=== PATIENT | female | born 1955 ===

== ENCOUNTER 2020-09-27 21:20 | Inpatient (IN) | payer OTHER ==
[2020-09-27] MEDS ORDERED: Sodium Chloride 0.9% 1,000 ML IV ONE (21:57)
[2020-09-27] MEDS ORDERED: Sodium Chloride 0.9% 10 ML Syringe FLUSH PRN (21:57)
[2020-09-27] MEDS ORDERED: Ondansetron 4 MG/2 ML SDV IVPUSH ONE (22:06)
[2020-09-27] MEDS ORDERED: HYDROmorphone 0.5 MG/0.5 ML Syringe IVPUSH ONE (22:06)
--- NOTE | 2020-09-27 22:06 | EDM.PDOC ---
ED HPI GENERAL MEDICAL PROBLEM - General Chief Complaint: Genitourinary Problem Stated Complaint: UTI AND VOMITING Time Seen by Provider: 09/27/20 21:52 Source of Information: Reports: Patient History Limitations: Reports: No Limitations - History of Present Illness INITIAL COMMENTS - FREE TEXT/NARRATIVE: 65-year-old female presents the emergency department this evening with com plaints of urinary symptoms, fever as high as 102, chills, nausea, vomiting, and for bilateral flank pain. The patient states she developed urinary symptoms about 8 days ago and started taking Azo extra strength. She states she ran out of this yesterday and noticed severe urinary symptoms of frequency, burning, and urgency. She states she was seen at the clinic today by her primary care provider, Kristen Wild, and a urinalysis was collected. Urinalysis collected today at the clinic shows 2+ protein, 2+ ketones, 2+ occult blood, nitrite positive, 1+ leukocyte Estrace, 10-20 RBC, 40-50 WBC, many urine bacteria, urine culture is pending. The patient was then started on Levaquin and has taken 1 dose today however she is not sure whether or not it stayed down due to her vomiting. She states she is feeling like she is having chest pain however it is more epigastric and she relates this to her vomiting today. Patient states she does have a history of pyelonephritis with previous hospitalizations. Lower Back Pain Score (Numeric/FACES): 10 - Related Data Allergies Allergy/AdvReac Type Severity Reaction Status Date / Time No Known Allergies Allergy Verified 04/23/18 17:17 Home Meds: Home Meds Omeprazole [Prilosec] 20 mg PO DAILY 11/17/13 [History] Pregabalin [Lyrica] 100 mg PO BID 04/05/14 [History] Meloxicam 15 mg PO DAILY 09/27/20 [History] traMADol [Ultram] 50 mg PO ASDIRECTED PRN 09/27/20 [History] Past Medical History Gastrointestinal History: Reports: GERD Genitourinary History: Reports: Pyelonephritis, UTI, Recurrent Musculoskeletal History: Reports: Back Pain, Chronic, Neck Pain, Chronic, Osteoarthritis, Other (See Below) Neurological History: Reports: Other (See Below) Other Neuro History: fibromyalgia - Past Surgical History HEENT Surgical History: Reports: Tonsillectomy Female Surgical History: Reports: Breast Implant, Hysterectomy Other Female Surgeries/Procedures: breast augmentation, breast reduction Neurological Surgical History: Reports: C-Spine, Lumbar Spine, Other (See Below) Other Neurological Surgeries/Procedures: C4-6 fusion Musculoskeletal Surgical History: Reports: Arthroscopic Knee, Carpal Tunnel, Kne e Replacement, Shoulder Surgery Social & Family History - Tobacco Use Tobacco Use Status *Q: Never Tobacco User Second Hand Smoke Exposure: No - Caffeine Use Caffeine Use: Reports: None - Recreational Drug Use Recreational Drug Use: No - Living Situation & Occupation Living situation: Reports: , with Spouse Occupation: Employed (Curriculum Director, [employer]) ED ROS GENERAL - Review of Systems Review Of Systems: Comprehensive ROS is negative, except as noted in HPI. ED EXAM, RENAL/ - Physical Exam Exam: See Below Exam Limited By: No Limitations General Appearance: Alert, WD/WN, Mild Distress Ears: Normal External Exam, Hearing Grossly Normal Nose: Normal Inspection Throat/Mouth: Normal Inspection, Normal Lips, Normal Voice, No Airway Compromise Head: Atraumatic Neck: Normal Inspection, Supple Respiratory/Chest: No Respiratory Distress, Lungs Clear, Normal Breath Sounds, No Accessory Muscle Use, Chest Non-Tender Cardiovascular: Normal Peripheral Pulses, Regular Rate, Rhythm, No Murmur GI/Abdominal: Normal Bowel Sounds, Soft, No Distention. No: Non-Tender (Female) Exam: Deferred Rectal (Female) Exam: Deferred Back Exam: Normal Inspection Extremities: Normal Inspection, Normal Range of Motion Neurological: Alert, Oriented, Normal Cognition Psychiatric: Normal Affect, Normal Mood Skin Exam: Warm, Dry, Intact, Normal Color, No Rash Lymphatic: No Adenopathy Course - Vital Signs Text/Narrative:: Patient presents with urinary symptoms that started about 8 days ago. She states that initially when the symptoms developed she started taking Azo extra strength and has taken it for the past 6 days. She states she then ran out and developed severe urinary symptoms which include frequency, urgency, and burning. She states last night she developed a fever up to 102 degrees, nausea, and vomiting. Was seen in the clinic today by her primary care provider and a urinalysis was completed which did show she had a UTI. She was started on Levaquin at that time. She has taken 1 dose today however she states she has continued to vomit and has now developed bilateral flank pain. She does have a history of pyelonephritis in the past. Due to her tachycardia and low-grade temp, she does screen out as a sepsis risk so I have ordered labs to include CBC, CMP, CRP, lactic acid, and blood cultures x2. I have ordered a liter of IV fluids as the patient is likely dehydrated and has not been able to keep anything down. I have also ordered Zofran for nausea and Dilaudid for pain. Last Recorded V/S: Last Vital Signs Temp 99.3 F 09/27/20 21:45 Pulse 91 09/27/20 22:48 Resp 16 09/27/20 22:48 BP 108/73 09/27/20 22:48 Pulse Ox 93 L 09/27/20 22:48 - Orders/Labs/Meds Orders: Active Orders 24 hr Category Date Time Status Blood Pressure Mgt: Sepsis [RC] Q15MX2 Care 09/27/20 21:58 Active CULTURE BLOOD [BC] Stat Lab 09/27/20 22:15 Received CULTURE BLOOD [BC] Stat Lab 09/27/20 22:15 Received Sodium Chloride 0.9% [Saline Flush] Med 09/27/20 21:57 Active 10 ml FLUSH ASDIRECTED PRN cefTRIAXone [Rocephin] 2 gm Med 09/27/20 23:10 Ordered Sodium Chloride 0.9% [Normal Saline] 100 ml IV ONETIME Blood Culture x2 Reflex Set [OM.PC] Stat Oth 09/27/20 21:57 Ordered Saline Lock Insert [OM.PC] Stat Oth 09/27/20 21:57 Ordered Medication Orders Ceftriaxone Sodium 2 gm/ (Sodium Chloride) 100 mls @ 200 mls/hr IV ONETIME ONE Stop: 09/27/20 23:39 Sodium Chloride (Sodium Chloride 0.9% 10 Ml Syringe) 10 ml FLUSH ASDIRECTED PRN PRN Reason: Keep Vein Open Last Admin: 09/27/20 22:17 Dose: 10 ml Documented by: CATALINA Labs: Laboratory Tests 09/27/20 09/27/20 09/27/20 Range/Units 22:15 22:15 22:15 WBC 7.67 (3.98-10.04) K/mm3 RBC 4.58 (3.98-5.22) M/mm3 Hgb 12.9 (11.2-15.7) gm/dl Hct 38.6 (34.1-44.9) % MCV 84.3 (79.4-94.8) fl MCH 28.2 (25.6-32.2) pg MCHC 33.4 (32.2-35.5) g/dl RDW Std Deviation 39.6 (36.4-46.3) fL Plt Count 152 L (182-369) K/mm3 MPV 9.0 L (9.4-12.3) fl Neutrophils % (Manual) 86 H (40-60) % Band Neutrophils % 1 (0-10) % Lymphocytes % (Manual) 10 L (20-40) % Atypical Lymphs % 0 % Monocytes % (Manual) 3 (2-10) % Eosinophils % (Manual) 0 L (0.7-5.8) % Basophils % (Manual) 0 L (0.1-1.2) Platelet Estimate Adequate RBC Morph Comment Normal PT 11.9 (9.7-12.0) SECONDS INR 1.11 Sodium 133 L (136-145) mEq/L Potassium 4.3 (3.5-5.1) mEq/L Chloride 96 L (98-107) mEq/L Carbon Dioxide 23 (21-32) mEq/L Anion Gap 18.3 H (5-15) BUN 20 H (7-18) mg/dL Creatinine 0.9 (0.55-1.02) mg/dL Est Cr Clr Drug Dosing 59.89 mL/min Estimated GFR (MDRD) > 60 (>60) mL/min BUN/Creatinine Ratio 22.2 H (14-18) Glucose 99 (70-99) mg/dL Lactic Acid (0.4-2.0) mmol/L Calcium 8.8 (8.5-10.1) mg/dL Total Bilirubin 1.0 (0.2-1.0) mg/dL AST 16 (15-37) U/L ALT 20 (14-59) U/L Alkaline Phosphatase 88 (46-116) U/L C-Reactive Protein 17.1 H* (<1.0) mg/dL Total Protein 7.2 (6.4-8.2) g/dl Albumin 3.5 (3.4-5.0) g/dl Globulin 3.7 gm/dL Albumin/Globulin Ratio 1.0 (1-2) // Range/Units 22:15 WBC (3.98-10.04) K/mm3 RBC (3.98-5.22) M/mm3 Hgb (11.2-15.7) gm/dl Hct (34.1-44.9) % MCV (79.4-94.8) fl MCH (25.6-32.2) pg MCHC (32.2-35.5) g/dl RDW Std Deviation (36.4-46.3) fL Plt Count (182-369) K/mm3 MPV (9.4-12.3) fl Neutrophils % (Manual) (40-60) % Band Neutrophils % (0-10) % Lymphocytes % (Manual) (20-40) % Atypical Lymphs % % Monocytes % (Manual) (2-10) % Eosinophils % (Manual) (0.7-5.8) % Basophils % (Manual) (0.1-1.2) Platelet Estimate RBC Morph Comment PT (9.7-12.0) SECONDS INR Sodium (136-145) mEq/L Potassium (3.5-5.1) mEq/L Chloride (98-107) mEq/L Carbon Dioxide (21-32) mEq/L Anion Gap (5-15) BUN (7-18) mg/dL Creatinine (0.55-1.02) mg/dL Est Cr Clr Drug Dosing mL/min Estimated GFR (MDRD) (>60) mL/min BUN/Creatinine Ratio (14-18) Glucose (70-99) mg/dL Lactic Acid 1.1 (0.4-2.0) mmol/L Calcium (8.5-10.1) mg/dL Total Bilirubin (0.2-1.0) mg/dL AST (15-37) U/L ALT (14-59) U/L Alkaline Phosphatase (46-116) U/L C-Reactive Protein (<1.0) mg/dL Total Protein (6.4-8.2) g/dl Albumin (3.4-5.0) g/dl Globulin gm/dL Albumin/Globulin Ratio (1-2) Meds: Medications Generic Name Dose Route Start Last Admin Trade Name Freq PRN Reason Stop Dose Admin Ceftriaxone Sodium 2 gm/ 100 mls @ 200 mls/hr 09/27/20 23:10 Sodium Chloride IV 09/27/20 23:39 ONETIME ONE Sodium Chloride 10 ml 09/27/20 21:57 09/27/20 22:17 Sodium Chloride 0.9% 10 Ml Syringe FLUSH 10 ml ASDIRECTED PRN Administration Keep Vein Open Discontinued Medications Generic Name Dose Route Start Last Admin Trade Name César PRN Reason Stop Dose Admin Hydromorphone HCl 0.5 mg 09/27/20 22:06 09/27/20 22:16 Hydromorphone 0.5 Mg/0.5 Ml Syringe IVPUSH 09/27/20 22:07 0.5 mg ONETIME ONE Administration Sodium Chloride 1,000 mls @ 999 mls/hr 09/27/20 21:57 09/27/20 22:13 Normal Saline IV 09/27/20 22:57 999 mls/hr BOLUS ONE Administration Protocol Ondansetron HCl 4 mg 09/27/20 22:06 09/27/20 22:16 Ondansetron 4 Mg/2 Ml Sdv IVPUSH 09/27/20 22:07 4 mg ONETIME ONE Administration - Re-Assessments/Exams Free Text/Narrative Re-Assessment/Exam: 09/27/20 23:16 Labs reveal a WBC of 7.67, hemoglobin 12.9, hematocrit 38.6, platelet count 152, chemistry reveals a sodium of 133, potassium 4.3, chloride 96, anion gap 18.3, BUN 20, creatinine 0.9, GFR greater than 60, glucose 99, lactic acid 1.1, C- reactive protein 17.1. I have ordered 2 g of Rocephin IV on this patient. I feel this patient needs to be admitted as she is a failed outpatient treatment and could have pyelonephritis. I have phoned Dr. Barboza, the hospitalist, and he has agreed to accept her as an inpatient admit. He also request that I ordered her retroperitoneal ultrasound of the kidneys to rule out hydronephrosis I will place this order. Departure - Departure Time of Disposition: 23:25 Disposition: Admitted As Inpatient 68 Condition: Good Clinical Impression: UTI, Urinary tract infectious disease - Discharge Information Referrals: Kristen Wild, PLATING OPERATOR [Primary Care Provider] - Forms: ED Department Discharge Sepsis Event Note (ED) - Evaluation Sepsis Screening Result: Possible Sepsis Risk - Focused Exam Vital Signs: Vital Signs Temp Pulse Resp BP Pulse Ox 09/27/20 22:48 91 16 108/73 93 L 09/27/20 21:45 99.3 F 108 H 16 115/66 100 - My Orders Last 24 Hours: My Active Orders 09/27/20 21:57 Sodium Chloride 0.9% [Saline Flush] 10 ml FLUSH ASDIRECTED PRN Blood Culture x2 Reflex Set [OM.PC] Stat Saline Lock Insert [OM.PC] Stat 09/27/20 21:58 Blood Pressure Mgt: Sepsis [RC] Q15MX2 09/27/20 22:15 CULTURE BLOOD [BC] Stat CULTURE BLOOD [BC] Stat 09/27/20 23:10 cefTRIAXone [Rocephin] 2 gm Sodium Chloride 0.9% [Normal Saline] 100 ml IV ONETIME - Assessment/Plan Last 24 Hours: My Active Orders 09/27/20 21:57 Sodium Chloride 0.9% [Saline Flush] 10 ml FLUSH ASDIRECTED PRN Blood Culture x2 Reflex Set [OM.PC] Stat Saline Lock Insert [OM.PC] Stat 09/27/20 21:58 Blood Pressure Mgt: Sepsis [RC] Q15MX2 09/27/20 22:15 CULTURE BLOOD [BC] Stat CULTURE BLOOD [BC] Stat 09/27/20 23:10 cefTRIAXone [Rocephin] 2 gm Sodium Chloride 0.9% [Normal Saline] 100 ml IV ONETIME
[2020-09-27] MEDS ORDERED: cefTRIAXone 2 GM in Sodium Chloride 0.9% 100 ML IV ONE (23:10)
[2020-09-27] MEDS ORDERED: Sodium Chloride 0.9% 1,000 ML IV SCH (23:45)
[2020-09-28] MEDS ORDERED: HYDROmorphone 0.5 MG/0.5 ML Syringe IVPUSH PRN (01:34)
[2020-09-28] MEDS: Ondansetron 4 MG/2 ML SDV IVPUSH PRN ×3 (01:55→18:59)
[2020-09-28] MEDS ORDERED: Acetaminophen 325 MG Tab PO PRN (04:55)
[2020-09-28] MEDS: Sodium Chloride 0.9% 1,000 ML IV SCH ×3 (06:31→20:21)
--- NOTE | 2020-09-28 07:09 | PCM.HP.2 ---
H&P History of Present Illness - General Date of Service: 09/28/20 Admit Problem/Dx: Admission Diagnosis/Problem Admission Diagnosis/Problem UTI, Urinary tract infectious disease Source of Information: Patient History Limitations: Reports: No Limitations - History of Present Illness Initial Comments - Free Text/Narative: The patient is an otherwise healthy 65-year-old lady who has presented to the emergency department with a complaint of urinary tract infection. The patient had a fever at home, chills and she also reportedly have nausea and vomiting. The patient had developed urinary symptoms last week and she had been taking [id number] UTI treatment and she feels that this has interfered with her been able to tell the severity of her urinary tract infection. The patient also had started on Levaquin however she vomited after 1 dose. The patient also repo rts having suprapubic pain. She has dysuria, frequency and urgency. Cultures were obtained in the emergency department. The patient says that she had similar symptoms in the past. Patient has a history of hospitalization with pyelonephritis. The patient also says that she has felt dehydrated and she has been unable to keep anything down prior to presentation. She has been in her usual state of health. The patient does not use alcohol or tobacco. Onset of Symptoms: Reports: Gradual Duration of Symptoms: Reports: Week(s):, Getting Worse Location: Reports: Generalized Quality: Reports: Ache, Burning Severity: Mild Improves with: Reports: Medication Worsens with: Reports: Other (With urination) Associated Symptoms: Reports: Fever/Chills, Nausea/Vomiting Lower Back Pain Score (Numeric/FACES): 10 Headache Pain Score (Numeric/FACES): 7 - Related Data Allergies/Adverse Reactions: Allergies Allergy/AdvReac Type Severity Reaction Status Date / Time No Known Allergies Allergy Verified 04/23/18 17:17 Home Medications: Home Meds Omeprazole [Prilosec] 20 mg PO DAILY 11/17/13 [History] Pregabalin [Lyrica] 100 mg PO DAILY 04/05/14 [History] Meloxicam 15 mg PO DAILY 09/27/20 [History] traMADol [Ultram] 50 mg PO BEDTIME 09/27/20 [History] MV,Ca,Min/Iron/FA/Guarana/Caff [One Daily Energy Tablet] 1 each PO DAILY 09/28/20 [History] Melatonin 5 mg PO BEDTIME 09/28/20 [History] Past Medical History HEENT History: Reports: Other (See Below) Other HEENT History: Wears glasses Cardiovascular History: Reports: None Respiratory History: Reports: None Gastrointestinal History: Reports: GERD Genitourinary History: Reports: Pyelonephritis, UTI, 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: Musculoskeletal History: Reports: Back Pain, Chronic, Neck Pain, Chronic, Osteoarthritis Neurological History: Reports: Migraines, Other (See Below) Other Neuro History: fibromyalgia Psychiatric History: Reports: None Endocrine/Metabolic History: Reports: None Hematologic History: Reports: None Immunologic History: Reports: None Dermatologic History: Reports: None - Infectious Disease History Infectious Disease History: Reports: Chicken Pox - Past Surgical History HEENT Surgical History: Reports: Tonsillectomy GI Surgical History: Reports: None Female Surgical History: Reports: Hysterectomy Other Female Surgeries/Procedures: breast augmentation, breast reduction Neurological Surgical History: Reports: C-Spine, Lumbar Spine, Other (See Below) Other Neurological Surgeries/Procedures: C4-6 fusion Musculoskeletal Surgical History: Reports: Arthroscopic Knee, Carpal Tunnel, Knee Replacement, Shoulder Surgery, Other (See Below) Other Musculoskeletal Surgeries/Procedures:: Bilat shoulder surgery, LTKA, Spin al fusion to 3 vertebra in neck Social & Family History - Family History Family Medical History: Unobtainable - Tobacco Use Tobacco Use Status *Q: Former Tobacco User Years of Tobacco use: 9 Used Tobacco, but Quit: Yes Month/Year Tobacco Last Used: 1979 Second Hand Smoke Exposure: No - Caffeine Use Caffeine Use: Reports: Coffee Caffeine Use Comment: 4 cups a day - Recreational Drug Use Recreational Drug Use: No - Living Situation & Occupation Living situation: Reports: , with Spouse Occupation: Employed (Program Management Specialist, [employer]) H&P Review of Systems - Review of Systems: Review Of Systems: See Below General: Reports: Fever, Chills, Weakness HEENT: Reports: No Symptoms Pulmonary: Reports: No Symptoms Cardiovascular: Reports: No Symptoms Gastrointestinal: Reports: No Symptoms Genitourinary: Reports: Dysuria, Frequency, Burning, Pain, Urgency Musculoskeletal: Reports: Back Pain Skin: Reports: No Symptoms Psychiatric: Reports: No Symptoms Neurological: Reports: No Symptoms Hematologic/Lymphatic: Reports: No Symptoms Immunologic: Reports: No Symptoms Exam - Exam Exam: See Below - Vital Signs Vital Signs: Last Vital Signs Temp 36.6 C 09/28/20 05:10 Pulse 91 09/28/20 05:10 Resp 14 09/28/20 05:10 BP 115/65 09/28/20 05:10 Pulse Ox 93 L 09/28/20 05:10 Weight: 75.07 kg - Exam Quality Assessment: DVT Prophylaxis. No: Supplemental Oxygen General: Alert, Oriented, Cooperative HEENT: Conjunctiva Clear, EACs Clear, EOMI, Hearing Intact, Mucosa Moist & [place], Nares Patent, PERRLA Neck: Supple, Trachea Midline, Full Range of Motion. No: Lymphadenopathy Lungs: Clear to Auscultation, Normal Respiratory Effort Cardiovascular: Regular Rate, Regular Rhythm, Normal S1, Normal S2 GI/Abdominal Exam: Normal Bowel Sounds, Soft, No Distention, Tender (Suprapubic area). No: Guarding, Rigid, Rebound (Female) Exam: Deferred Rectal (Female) Exam: Deferred Back Exam: Normal Inspection, CVA Tenderness (L), CVA Tenderness (R) Extremities: Normal Inspection, No Pedal Edema Skin: Warm, Dry, Intact Neurological: Cranial Nerves Intact, Normal Gait, Normal Speech Neuro Extensive - Mental Status: Alert, Oriented x3 Psychiatric: Alert, Normal Affect, Normal Mood - Patient Data Lab Results Last 24 hrs: Laboratory Results - last 24 hr 09/27/20 09/27/20 09/27/20 Range/Units 22:15 22:15 22:15 WBC 7.67 (3.98-10.04) K/mm3 RBC 4.58 (3.98-5.22) M/mm3 Hgb 12.9 (11.2-15.7) gm/dl Hct 38.6 (34.1-44.9) % MCV 84.3 (79.4-94.8) fl MCH 28.2 (25.6-32.2) pg MCHC 33.4 (32.2-35.5) g/dl RDW Std Deviation 39.6 (36.4-46.3) fL Plt Count 152 L (182-369) K/mm3 MPV 9.0 L (9.4-12.3) fl Neutrophils % (Manual) 86 H (40-60) % Band Neutrophils % 1 (0-10) % Lymphocytes % (Manual) 10 L (20-40) % Atypical Lymphs % 0 % Monocytes % (Manual) 3 (2-10) % Eosinophils % (Manual) 0 L (0.7-5.8) % Basophils % (Manual) 0 L (0.1-1.2) Platelet Estimate Adequate RBC Morph Comment Normal PT 11.9 (9.7-12.0) SECONDS INR 1.11 Sodium 133 L (136-145) mEq/L Potassium 4.3 (3.5-5.1) mEq/L Chloride 96 L (98-107) mEq/L Carbon Dioxide 23 (21-32) mEq/L Anion Gap 18.3 H (5-15) BUN 20 H (7-18) mg/dL Creatinine 0.9 (0.55-1.02) mg/dL Est Cr Clr Drug Dosing 59.89 mL/min Estimated GFR (MDRD) > 60 (>60) mL/min BUN/Creatinine Ratio 22.2 H (14-18) Glucose 99 (70-99) mg/dL Lactic Acid (0.4-2.0) mmol/L Calcium 8.8 (8.5-10.1) mg/dL Total Bilirubin 1.0 (0.2-1.0) mg/dL AST 16 (15-37) U/L ALT 20 (14-59) U/L Alkaline Phosphatase 88 (46-116) U/L C-Reactive Protein 17.1 H* (<1.0) mg/dL Total Protein 7.2 (6.4-8.2) g/dl Albumin 3.5 (3.4-5.0) g/dl Globulin 3.7 gm/dL Albumin/Globulin Ratio 1.0 (1-2) SARS-CoV-2 RNA (STEFAN) (NEGATIVE) 09/27/20 09/27/20 Range/Units 22:15 23:36 WBC (3.98-10.04) K/mm3 RBC (3.98-5.22) M/mm3 Hgb (11.2-15.7) gm/dl Hct (34.1-44.9) % MCV (79.4-94.8) fl MCH (25.6-32.2) pg MCHC (32.2-35.5) g/dl RDW Std Deviation (36.4-46.3) fL Plt Count (182-369) K/mm3 MPV (9.4-12.3) fl Neutrophils % (Manual) (40-60) % Band Neutrophils % (0-10) % Lymphocytes % (Manual) (20-40) % Atypical Lymphs % % Monocytes % (Manual) (2-10) % Eosinophils % (Manual) (0.7-5.8) % Basophils % (Manual) (0.1-1.2) Platelet Estimate RBC Morph Comment PT (9.7-12.0) SECONDS INR Sodium (136-145) mEq/L Potassium (3.5-5.1) mEq/L Chloride (98-107) mEq/L Carbon Dioxide (21-32) mEq/L Anion Gap (5-15) BUN (7-18) mg/dL Creatinine (0.55-1.02) mg/dL Est Cr Clr Drug Dosing mL/min Estimated GFR (MDRD) (>60) mL/min BUN/Creatinine Ratio (14-18) Glucose (70-99) mg/dL Lactic Acid 1.1 (0.4-2.0) mmol/L Calcium (8.5-10.1) mg/dL Total Bilirubin (0.2-1.0) mg/dL AST (15-37) U/L ALT (14-59) U/L Alkaline Phosphatase (46-116) U/L C-Reactive Protein (<1.0) mg/dL Total Protein (6.4-8.2) g/dl Albumin (3.4-5.0) g/dl Globulin gm/dL Albumin/Globulin Ratio (1-2) SARS-CoV-2 RNA (STEFAN) Negative (NEGATIVE) Result Diagrams: 09/27/20 22:15 09/27/20 22:15 Sepsis Event Note - Evaluation Sepsis Screening Result: No Definite Risk Current Stage of Sepsis: Ruled Out Reason for Ruling Out Sepsis: Afebrile, normal WBC, normal lactic acid, normal pulse on exam, normal respiration - Focused Exam Vital Signs: Vital Signs Temp Temp Pulse Pulse Resp BP BP 09/28/20 05:10 36.6 C 91 14 115/65 09/28/20 00:51 36.7 C 97 14 104/80 09/28/20 00:48 88 16 108/88 09/27/20 23:30 120/74 09/27/20 23:15 101/82 05/27/21 22:48 91 16 108/73 09/27/20 21:45 37.4 C 108 H 16 115/66 Pulse Ox 09/28/20 05:10 93 L 09/28/20 00:51 92 L 09/28/20 00:48 97 09/27/20 23:30 09/27/20 23:15 09/27/20 22:48 93 L 09/27/20 21:45 100 - Problem List (1) UTI, Urinary tract infectious disease SNOMED Code(s): 56206580 ICD Code: N39.0 - URINARY TRACT INFECTION, SITE NOT SPECIFIED Status: Acute Priority: High Current Visit: Yes Problem List Initiated/Reviewed/Updated: Yes Orders Last 24hrs: Active Orders 24 hr Category Date Time Status Admission Status [Patient Status] [ADT] Routine ADT 09/27/20 23:27 Active Activity as Tolerated [RC] BID Care 09/28/20 01:30 Active Regular Diet [DIET] Diet 09/28/20 Breakfast Active Retroperitoneal Comp [US] Stat Exams 09/27/20 23:16 Taken CULTURE BLOOD [BC] Stat Lab 09/27/20 22:15 Received CULTURE BLOOD [BC] Stat Lab 09/27/20 22:15 Received Acetaminophen [TylenoL] Med 09/28/20 09:00 Active 650 mg PO Q4H PRN HYDROmorphone [Dilaudid] Med 09/28/20 01:34 Active 0.5 mg IVPUSH Q3H PRN Melatonin Med 09/28/20 21:00 Active 3 mg PO BEDTIME Meloxicam Med 09/28/20 09:00 Ordered 15 mg PO DAILY Ondansetron [Zofran] Med 09/28/20 01:32 Active 4 mg IVPUSH Q6H PRN Pantoprazole [ProTONIX] Med 09/28/20 09:00 Active 40 mg PO DAILY Pregabalin [Lyrica] Med 09/28/20 09:00 Active 100 mg PO DAILY Sodium Chloride 0.9% [Normal Saline] 1,000 ml Med 09/28/20 02:30 Active IV ASDIRECTED Sodium Chloride 0.9% [Saline Flush] Med 09/27/20 21:57 Active 10 ml FLUSH ASDIRECTED PRN traMADol [Ultram] Med 09/28/20 21:00 Active 50 mg PO BEDTIME Blood Culture x2 Reflex Set [OM.PC] Stat Ot 09/27/20 21:57 Ordered Saline Lock Insert [OM.PC] Stat Ot 09/27/20 21:57 Ordered Code Status [Resuscitation Status] Routine Resus Stat 09/28/20 01:27 Ordered Medication Orders Acetaminophen (Acetaminophen 325 Mg Tab) 650 mg PO Q4H PRN PRN Reason: Pain Hydromorphone HCl (Hydromorphone 0.5 Mg/0.5 Ml Syringe) 0.5 mg IVPUSH Q3H PRN PRN Reason: Pain Last Admin: 09/28/20 01:56 Dose: 0.5 mg Documented by: EJ Sodium Chloride (Normal Saline) 1,000 mls @ 150 mls/hr IV ASDIRECTED MOHIT Last Admin: 09/28/20 06:31 Dose: 150 mls/hr Documented by: JASON Melatonin (Melatonin 3 Mg Tab) 3 mg PO BEDTIME MOHIT Non-Formulary Medication (Meloxicam) 15 mg PO DAILY [facility] Ondansetron HCl (Ondansetron 4 Mg/2 Ml Sdv) 4 mg IVPUSH Q6H PRN PRN Reason: Nausea Last Admin: 09/28/20 01:55 Dose: 4 mg Documented by: EJ Pantoprazole Sodium (Pantoprazole 40 Mg Tab.Cr) 40 mg PO DAILY [facility] Pregabalin (Pregabalin 25 Mg Cap) 100 mg PO DAILY [facility] Sodium Chloride (Sodium Chloride 0.9% 10 Ml Syringe) 10 ml FLUSH ASDIRECTED PRN PRN Reason: Keep Vein Open Last Admin: 09/27/20 22:17 Dose: 10 ml Documented by: CATALINA Tramadol HCl (Tramadol 50 Mg Tab) 50 mg PO BEDTIME [facility] Assessment/Plan Comment:: The patient is a 65-year-old lady who has been admitted to the hospital out of concern for urinary tract infection. The patient had been previously on Levaquin and this has been discontinued and she has been placed on IV Rocephin. The patient also has an appearance of dehydration and she is on IV fluids currently and this will be continued at 150 mL/h at least for today. Patient however regular diet as tolerated. I have ordered repeat laboratory studies for the morning. The patient has been encouraged to ambulate. The patient will also have DVT prophylaxis with the use of Lovenox at 30 mg subcutaneously daily. The patient's pain control will be initiated with the use of hydromorphone as necessary. Oral tramadol has been authorized on the patient's home medications. Cultures have been obtained and the antibiotics will be deescalated as necessary. The patient may be appropriate for discharge 1 to 2 days. - Mortality Measure Prognosis:: Good
--- NOTE | 2020-09-28 08:37 | US ---
Renal ultrasound: Multiple real-time images were obtained of both kidneys. Comparison: No additional renal ultrasound is available. Two kidneys are seen which are normal in location. Minimal prominence of both renal pelvises are seen. This finding can be seen with infection if this is a possibility as well as being seen normally. No additional cyst or solid abnormality is seen. Prevoid bladder volume is 152 mL and post void bladder volume is 103 mL. Right kidney length: 10.2 cm Left kidney length: 10.6 cm Resistivity indices: Within normal limits Impression: 1. Slightly prominent renal pelvises. These findings can be seen with urinary tract infections as well as being seen normally. 2. Post void residual within the bladder. 3. Other portions of the renal ultrasound study appear within normal limits. Diagnostic code #2 I mostly agree (no need for CT abdomen or pelvis as mentioned on preliminary report) with preliminary report from [facility] finalized on 09/28/20, 2:34 AM CDT, code 2
[2020-09-28] MEDS ORDERED: Pregabalin 25 MG Cap PO SCH ×2 (09:00→21:00)
[2020-09-28] MEDS: Enoxaparin 30 MG/0.3 ML Syringe SUBCUT SCH (09:31)
[2020-09-28] MEDS: Meloxicam 7.5 MG Tab PO SCH (09:32)
[2020-09-28] MEDS: Pantoprazole 40 MG Tab.CR PO SCH (09:32)
[2020-09-28] MEDS: Acetaminophen 325 MG Tab PO PRN ×2 (12:17→17:33)
[2020-09-28] MEDS ORDERED: oxyCODONE 5 MG Tab PO PRN (18:22)
[2020-09-28] MEDS ORDERED: cefTRIAXone 2 GM in Sodium Chloride 0.9% 100 ML IV SCH ×2 (21:00→23:00)
[2020-09-28] MEDS ORDERED: traMADol 50 MG Tab PO SCH (21:00)
[2020-09-28] MEDS ORDERED: Melatonin 3 MG Tab PO SCH (21:00)
[2020-09-28] MEDS: Acetaminophen/HYDROcodone 325-10 MG Tab PO PRN ×2 (22:15→22:17)
[2020-09-29] MEDS: Sodium Chloride 0.9% 1,000 ML IV SCH (02:52)
[2020-09-29] MEDS: Acetaminophen 325 MG Tab PO PRN (02:52)
[2020-09-29 03:11] VITALS: PULSE 74
--- NOTE | 2020-09-29 07:04 | PCM.PN ---
- Patient Data Vitals - Most Recent: Last Vital Signs Temp 36.8 C 09/29/20 03:03 Pulse 74 09/29/20 03:03 Resp 18 09/29/20 03:03 BP 110/92 H 09/29/20 03:03 Pulse Ox 93 L 09/29/20 03:03 Weight - Most Recent: 74.525 kg I&O - Last 24 Hours: Intake & Output 09/28/20 09/29/20 09/29/20 22:59 06:59 14:59 Intake Total 3211 2200 Output Total 250 1230 Balance 2961 970 Lab Results Last 24 Hours: Laboratory Results - last 24 hr 09/29/20 09/29/20 Range/Units 04:50 04:50 WBC 5.00 (3.98-10.04) K/mm3 RBC 3.63 L (3.98-5.22) M/mm3 Hgb 10.1 L D (11.2-15.7) gm/dl Hct 30.8 L (34.1-44.9) % MCV 84.8 (79.4-94.8) fl MCH 27.8 (25.6-32.2) pg MCHC 32.8 (32.2-35.5) g/dl RDW Std Deviation 39.5 (36.4-46.3) fL Plt Count 152 L (182-369) K/mm3 MPV 9.4 (9.4-12.3) fl Neut % (Auto) 77.2 H (34.0-71.1) % Lymph % (Auto) 8.6 L (19.3-51.7) % [place] % (Auto) 13.4 H (4.7-12.5) % Eos % (Auto) 0.4 L (0.7-5.8) Baso % (Auto) 0.2 (0.1-1.2) % Neut # (Auto) 3.86 (1.56-6.13) K/mm3 Lymph # (Auto) 0.43 L (1.18-3.74) K/mm3 [place] # (Auto) 0.67 H (0.24-0.36) K/mm3 Eos # (Auto) 0.02 L (0.04-0.36) K/mm3 Baso # (Auto) 0.01 (0.01-0.08) K/mm3 Manual Slide Review Abnormal smear Sodium 140 (136-145) mEq/L Potassium 3.4 L (3.5-5.1) mEq/L Chloride 107 (98-107) mEq/L Carbon Dioxide 24 (21-32) mEq/L Anion Gap 12.4 (5-15) BUN 9 (7-18) mg/dL Creatinine 0.7 (0.55-1.02) mg/dL Est Cr Clr Drug Dosing 77.01 mL/min Estimated GFR (MDRD) > 60 (>60) mL/min BUN/Creatinine Ratio 12.9 L (14-18) Glucose 103 H (70-99) mg/dL Calcium 7.8 L (8.5-10.1) mg/dL Magnesium 1.8 (1.8-2.4) mg/dL Total Bilirubin 0.3 (0.2-1.0) mg/dL AST 20 (15-37) U/L ALT 25 (14-59) U/L Alkaline Phosphatase 65 (46-116) U/L C-Reactive Protein 12.0 H* (<1.0) mg/dL Total Protein 5.5 L (6.4-8.2) g/dl Albumin 2.5 L (3.4-5.0) g/dl Globulin 3.0 gm/dL Albumin/Globulin Ratio 0.8 L (1-2) Jose Results Last 24 Hours: Microbiology 09/27/20 22:15 Aerobic Blood Culture - Preliminary Blood - Venous - Lab Draw NO GROWTH AFTER 1 DAY Anaerobic Blood Culture - Preliminary NO GROWTH AFTER 1 DAY 09/27/20 22:15 Aerobic Blood Culture - Preliminary Blood - Venous NO GROWTH AFTER 1 DAY Anaerobic Blood Culture - Preliminary NO GROWTH AFTER 1 DAY Med Orders - Current: Current Medications Acetaminophen (Acetaminophen 325 Mg Tab) 650 mg PO Q4H PRN PRN Reason: Pain Last Admin: 09/29/20 02:52 Dose: 650 mg Documented by: Hydrocodone Bitart/Acetaminophen (Acetaminophen/Hydrocodone 325-10 Mg Tab) 1 tab PO Q4H PRN PRN Reason: Pain Last Admin: 09/28/20 22:17 Dose: 0.5 tab Documented by: Enoxaparin Sodium (Enoxaparin 30 Mg/0.3 Ml Syringe) 30 mg SUBCUT Q24H [facility] Last Admin: 09/28/20 09:31 Dose: 30 mg Documented by: Hydromorphone HCl (Hydromorphone 0.5 Mg/0.5 Ml Syringe) 0.5 mg IVPUSH Q3H PRN PRN Reason: Pain Last Admin: 09/28/20 01:56 Dose: 0.5 mg Documented by: Sodium Chloride (Normal Saline) 1,000 mls @ 150 mls/hr IV ASDIRECTED [facility] Last Admin: 09/29/20 02:52 Dose: 150 mls/hr Documented by: Ceftriaxone Sodium 2 gm/ (Sodium Chloride) 100 mls @ 200 mls/hr IV Q24H [facility] Last Admin: 09/28/20 22:15 Dose: Not Given Documented by: Melatonin (Melatonin 3 Mg Tab) 3 mg PO BEDTIME [facility] Last Admin: 09/28/20 21:41 Dose: 3 mg Documented by: Meloxicam (Meloxicam 7.5 Mg Tab) 15 mg PO DAILY [facility] Last Admin: 09/28/20 09:32 Dose: 15 mg Documented by: Ondansetron HCl (Ondansetron 4 Mg/2 Ml Sdv) 4 mg IVPUSH Q6H PRN PRN Reason: Nausea Last Admin: 09/28/20 18:59 Dose: 4 mg Documented by: Oxycodone HCl (Oxycodone 5 Mg Tab) 5 mg PO Q8H PRN PRN Reason: Pain (moderate 4-6) Last Admin: 09/28/20 18:59 Dose: 2.5 mg Documented by: Pantoprazole Sodium (Pantoprazole 40 Mg Tab.Cr) 40 mg PO DAILY [facility] Last Admin: 09/28/20 09:32 Dose: 40 mg Documented by: Pregabalin (Pregabalin 25 Mg Cap) 100 mg PO BEDTIME [facility] Last Admin: 09/28/20 21:41 Dose: 100 mg Documented by: Sodium Chloride (Sodium Chloride 0.9% 10 Ml Syringe) 10 ml FLUSH ASDIRECTED PRN PRN Reason: Keep Vein Open Last Admin: 09/27/20 22:17 Dose: 10 ml Documented by: Tramadol HCl (Tramadol 50 Mg Tab) 50 mg PO BEDTIME [facility] Last Admin: 09/28/20 21:42 Dose: 50 mg Documented by: Discontinued Medications Acetaminophen (Acetaminophen 325 Mg Tab) 650 mg PO Q6H PRN PRN Reason: Pain Last Admin: 09/28/20 05:07 Dose: 650 mg Documented by: Hydromorphone HCl (Hydromorphone 0.5 Mg/0.5 Ml Syringe) 0.5 mg IVPUSH ONETIME ONE Stop: 09/27/20 22:07 Last Admin: 09/27/20 22:16 Dose: 0.5 mg Documented by: Sodium Chloride (Normal Saline) 1,000 mls @ 999 mls/hr IV BOLUS ONE; Protocol Stop: 09/27/20 22:57 Last Admin: 09/27/20 22:13 Dose: 999 mls/hr Documented by: Ceftriaxone Sodium 2 gm/ (Sodium Chloride) 100 mls @ 200 mls/hr IV ONETIME ONE Stop: 09/27/20 23:39 Last Admin: 09/27/20 23:25 Dose: 200 mls/hr Documented by: Sodium Chloride (Normal Saline) 1,000 mls @ 150 mls/hr IV ASDIRECTED [facility] Last Admin: 09/27/20 23:25 Dose: 150 mls/hr Documented by: Ceftriaxone Sodium 2 gm/ (Sodium Chloride) 100 mls @ 200 mls/hr IV Q24H [facility] Last Admin: 09/28/20 21:37 Dose: 200 mls/hr Documented by: Ondansetron HCl (Ondansetron 4 Mg/2 Ml Sdv) 4 mg IVPUSH ONETIME ONE Stop: 09/27/20 22:07 Last Admin: 09/27/20 22:16 Dose: 4 mg Documented by: Pregabalin (Pregabalin 25 Mg Cap) 100 mg PO DAILY [facility] Last Admin: 09/28/20 09:30 Dose: Not Given Documented by: - Patient Data Lab Results Last 24 hrs: Laboratory Results - last 24 hr 09/29/20 09/29/20 Range/Units 04:50 04:50 WBC 5.00 (3.98-10.04) K/mm3 RBC 3.63 L (3.98-5.22) M/mm3 Hgb 10.1 L D (11.2-15.7) gm/dl Hct 30.8 L (34.1-44.9) % MCV 84.8 (79.4-94.8) fl MCH 27.8 (25.6-32.2) pg MCHC 32.8 (32.2-35.5) g/dl RDW Std Deviation 39.5 (36.4-46.3) fL Plt Count 152 L (182-369) K/mm3 MPV 9.4 (9.4-12.3) fl Neut % (Auto) 77.2 H (34.0-71.1) % Lymph % (Auto) 8.6 L (19.3-51.7) % [place] % (Auto) 13.4 H (4.7-12.5) % Eos % (Auto) 0.4 L (0.7-5.8) Baso % (Auto) 0.2 (0.1-1.2) % Neut # (Auto) 3.86 (1.56-6.13) K/mm3 Lymph # (Auto) 0.43 L (1.18-3.74) K/mm3 [place] # (Auto) 0.67 H (0.24-0.36) K/mm3 Eos # (Auto) 0.02 L (0.04-0.36) K/mm3 Baso # (Auto) 0.01 (0.01-0.08) K/mm3 Manual Slide Review Abnormal smear Sodium 140 (136-145) mEq/L Potassium 3.4 L (3.5-5.1) mEq/L Chloride 107 (98-107) mEq/L Carbon Dioxide 24 (21-32) mEq/L Anion Gap 12.4 (5-15) BUN 9 (7-18) mg/dL Creatinine 0.7 (0.55-1.02) mg/dL Est Cr Clr Drug Dosing 77.01 mL/min Estimated GFR (MDRD) > 60 (>60) mL/min BUN/Creatinine Ratio 12.9 L (14-18) Glucose 103 H (70-99) mg/dL Calcium 7.8 L (8.5-10.1) mg/dL Magnesium 1.8 (1.8-2.4) mg/dL Total Bilirubin 0.3 (0.2-1.0) mg/dL AST 20 (15-37) U/L ALT 25 (14-59) U/L Alkaline Phosphatase 65 (46-116) U/L C-Reactive Protein 12.0 H* (<1.0) mg/dL Total Protein 5.5 L (6.4-8.2) g/dl Albumin 2.5 L (3.4-5.0) g/dl Globulin 3.0 gm/dL Albumin/Globulin Ratio 0.8 L (1-2) Result Diagrams: 09/29/20 04:50 09/29/20 04:50 Jose Results Last 24 hrs: Microbiology 09/27/20 22:15 Aerobic Blood Culture - Preliminary Blood - Venous - Lab Draw NO GROWTH AFTER 1 DAY Anaerobic Blood Culture - Preliminary NO GROWTH AFTER 1 DAY 09/27/20 22:15 Aerobic Blood Culture - Preliminary Blood - Venous NO GROWTH AFTER 1 DAY Anaerobic Blood Culture - Preliminary NO GROWTH AFTER 1 DAY Sepsis Event Note - Evaluation Sepsis Screening Result: No Definite Risk - Focused Exam Vital Signs: Vital Signs Temp Pulse Resp BP Pulse Ox 09/29/20 03:03 36.8 C 74 18 110/92 H 93 L 09/28/20 20:26 37.1 C 86 16 111/56 L 92 L - Problem List & Annotations (1) UTI, Urinary tract infectious disease SNOMED Code(s): 25023711 Code(s): N39.0 - URINARY TRACT INFECTION, SITE NOT SPECIFIED Status: Acute Priority: High Current Visit: Yes - My Orders Last 24 Hours: My Active Orders 09/28/20 Breakfast Regular Diet [DIET] 09/28/20 09:00 Acetaminophen [TylenoL] 650 mg PO Q4H PRN Enoxaparin [Lovenox] 30 mg SUBCUT Q24H Meloxicam [Mobic] 15 mg PO DAILY Pantoprazole [ProTONIX] 40 mg PO DAILY 09/28/20 18:22 oxyCODONE 5 mg PO Q8H PRN 09/28/20 19:47 Acetaminophen/HYDROcodone [[place] 325-10 MG] 1 tab PO Q4H PRN 09/28/20 21:00 Melatonin 3 mg PO BEDTIME Pregabalin [Lyrica] 100 mg PO BEDTIME cefTRIAXone [Rocephin] 2 gm Sodium Chloride 0.9% [Normal Saline] 100 ml IV Q2 4H traMADol [Ultram] 50 mg PO BEDTIME - Plan Plan:: The patient is a 65-year-old lady who has been admitted to the hospital out of concern for urinary tract infection. The patient had been previously on Levaquin and this has been discontinued and she has been placed on IV Rocephin. The patient also has an appearance of dehydration and she is on IV fluids currently and this will be continued at 150 mL/h at least for today. Patient however regular diet as tolerated. I have ordered repeat laboratory studies for the morning. The patient has been encouraged to ambulate. The patient will also have DVT prophylaxis with the use of Lovenox at 30 mg subcutaneously daily. The patient's pain control will be initiated with the use of hydromorphone as necessary. Oral tramadol has been authorized on the patient's home medications. Cultures have been obtained and the antibiotics will be deescalated as necessary. The patient may be appropriate for discharge 1 to 2 days.
[2020-09-29] MEDS: Enoxaparin 30 MG/0.3 ML Syringe SUBCUT SCH ×2 (09:14→09:19)
[2020-09-29] MEDS: Pantoprazole 40 MG Tab.CR PO SCH (09:14)
[2020-09-29] MEDS: Meloxicam 7.5 MG Tab PO SCH (09:14)
[2020-09-29 10:00] VITALS: BP 108/75
--- NOTE | 2020-09-29 11:00 | PCM.DCSUM1 ---
Discharge Summary - Hospital Course HPI Initial Comments: Admitted for essentially dehydration as well as outpatient failure of a urinary tract infection. Diagnosis: Stroke: No - Discharge Data Discharge Date: 09/29/20 Discharge Disposition: Home, Self-Care 01 Condition: Good - Referral to Home Health Primary Care Physician: Kristen Wild NP - Discharge Diagnosis/Problem(s) (1) UTI, Urinary tract infectious disease SNOMED Code(s): 81422436 ICD Code: N39.0 - URINARY TRACT INFECTION, SITE NOT SPECIFIED Status: Resolved Priority: High Current Visit: Yes - Patient Summary/Data Hospital Course: The patient is an otherwise healthy 65-year-old lady who has presented to the emergency department with a complaint of urinary tract infection. The patient had a fever at home, chills and she also reportedly have nausea and vomiting. The patient had developed urinary symptoms last week and she had been taking [id number] UTI treatment and she feels that this has interfered with her been able to tell the severity of her urinary tract infection. The patient also had started on Levaquin however she vomited after 1 dose. The patient also reports having suprapubic pain. She has dysuria, frequency and urgency. Cultures were obtained in the emergency department. The patient says that she had similar symptoms in the past. Since the patient had been previously started on Levaquin p.o. this was discontinued and she was started immediately on Rocephin as well as fluid resuscitation. The patient had tolerated the fluids well. She continued to improve rapidly. The patient's white blood cell count on day of discharge was showing at 5000. Cultures are still currently pending. She has been tolerating her diet well. She feels like she can go home. She has been ambulating well. The patient has been recommended to have her regular diet as tolerated. She is also to have activity as tolerated. She is also to follow-up with her primary care physician. She has Levaquin available and should continue this. I discussed black box warnings with regards to Levaquin with her. The patient has been discharged from acute hospitalization with the recommendations listed above. - Patient Instructions Diet: Heart Healthy Diet Activity: As Tolerated Notify Provider of: Fever, Increased Pain - Discharge Plan *PRESCRIPTION DRUG MONITORING PROGRAM REVIEWED*: No *COPY OF PRESCRIPTION DRUG MONITORING REPORT IN PATIENT MARQUEZ: No Home Medications: Home Meds Omeprazole [Prilosec] 20 mg PO DAILY 11/17/13 [History] Pregabalin [Lyrica] 100 mg PO DAILY 04/05/14 [History] Meloxicam 15 mg PO DAILY 09/27/20 [History] traMADol [Ultram] 50 mg PO BEDTIME 09/27/20 [History] MV,Ca,Min/Iron/FA/Guarana/Caff [One Daily Energy Tablet] 1 each PO DAILY 09/28/20 [History] Melatonin 5 mg PO BEDTIME 09/28/20 [History] Oxygen Therapy Mode: Room Air Patient Handouts: Urinary Tract Infection, Adult, [id number], Sepsis, Self Care, Adult Forms: ED Department Discharge Referrals: Kristen Wild NP [Primary Care Provider] - 10/05/20 10:40 am (this is the check in time your appointment is at 11:00) - Discharge Summary/Plan Comment DC Time >30 min.: Yes - General Info Date of Service: 09/29/20 Admission Dx/Problem (Free Text: Admission Diagnosis/Problem Admission Diagnosis/Problem UTI, Urinary tract infectious disease Subjective Update: The patient has been doing well. She has been tolerating her diet. She has been physically active. She feels like she can go home today. - Review of Systems General: Reports: No Symptoms HEENT: Reports: No Symptoms Pulmonary: Reports: No Symptoms Cardiovascular: Reports: No Symptoms Gastrointestinal: Reports: No Symptoms Genitourinary: Reports: No Symptoms Musculoskeletal: Reports: No Symptoms Skin: Reports: No Symptoms Neurological: Reports: No Symptoms Psychiatric: Reports: No Symptoms - Patient Data Vitals - Most Recent: Last Vital Signs Temp 36.7 C 09/29/20 09:34 Pulse 74 09/29/20 09:34 Resp 20 09/29/20 09:34 BP 108/75 09/29/20 09:34 Pulse Ox 96 09/29/20 09:34 Weight - Most Recent: 74.525 kg I&O - Last 24 hours: Intake & Output 09/28/20 09/29/20 09/29/20 22:59 06:59 14:59 Intake Total 3211 2200 Output Total 250 1230 Balance 2961 970 Lab Results - Last 24 hrs: Laboratory Results - last 24 hr 09/29/20 09/29/20 Range/Units 04:50 04:50 WBC 5.00 (3.98-10.04) K/mm3 RBC 3.63 L (3.98-5.22) M/mm3 Hgb 10.1 L D (11.2-15.7) gm/dl Hct 30.8 L (34.1-44.9) % MCV 84.8 (79.4-94.8) fl MCH 27.8 (25.6-32.2) pg MCHC 32.8 (32.2-35.5) g/dl RDW Std Deviation 39.5 (36.4-46.3) fL Plt Count 152 L (182-369) K/mm3 MPV 9.4 (9.4-12.3) fl Neut % (Auto) 77.2 H (34.0-71.1) % Lymph % (Auto) 8.6 L (19.3-51.7) % Delta % (Auto) 13.4 H (4.7-12.5) % Eos % (Auto) 0.4 L (0.7-5.8) Baso % (Auto) 0.2 (0.1-1.2) % Neut # (Auto) 3.86 (1.56-6.13) K/mm3 Lymph # (Auto) 0.43 L (1.18-3.74) K/mm3 Delta # (Auto) 0.67 H (0.24-0.36) K/mm3 Eos # (Auto) 0.02 L (0.04-0.36) K/mm3 Baso # (Auto) 0.01 (0.01-0.08) K/mm3 Manual Slide Review Abnormal smear Sodium 140 (136-145) mEq/L Potassium 3.4 L (3.5-5.1) mEq/L Chloride 107 (98-107) mEq/L Carbon Dioxide 24 (21-32) mEq/L Anion Gap 12.4 (5-15) BUN 9 (7-18) mg/dL Creatinine 0.7 (0.55-1.02) mg/dL Est Cr Clr Drug Dosing 77.01 mL/min Estimated GFR (MDRD) > 60 (>60) mL/min BUN/Creatinine Ratio 12.9 L (14-18) Glucose 103 H (70-99) mg/dL Calcium 7.8 L (8.5-10.1) mg/dL Magnesium 1.8 (1.8-2.4) mg/dL Total Bilirubin 0.3 (0.2-1.0) mg/dL AST 20 (15-37) U/L ALT 25 (14-59) U/L Alkaline Phosphatase 65 (46-116) U/L C-Reactive Protein 12.0 H* (<1.0) mg/dL Total Protein 5.5 L (6.4-8.2) g/dl Albumin 2.5 L (3.4-5.0) g/dl Globulin 3.0 gm/dL Albumin/Globulin Ratio 0.8 L (1-2) MARIBEL Results - Last 24 hrs: Microbiology 09/27/20 22:15 Aerobic Blood Culture - Preliminary Blood - Venous - Lab Draw NO GROWTH AFTER 1 DAY Anaerobic Blood Culture - Preliminary NO GROWTH AFTER 1 DAY 09/27/20 22:15 Aerobic Blood Culture - Preliminary Blood - Venous NO GROWTH AFTER 1 DAY Anaerobic Blood Culture - Preliminary NO GROWTH AFTER 1 DAY Med Orders - Current: Current Medications Acetaminophen (Acetaminophen 325 Mg Tab) 650 mg PO Q4H PRN PRN Reason: Pain Last Admin: 09/29/20 02:52 Dose: 650 mg Documented by: Hydrocodone Bitart/Acetaminophen (Acetaminophen/Hydrocodone 325-10 Mg Tab) 1 tab PO Q4H PRN PRN Reason: Pain Last Admin: 09/28/20 22:17 Dose: 0.5 tab Documented by: Enoxaparin Sodium (Enoxaparin 30 Mg/0.3 Ml Syringe) 30 mg SUBCUT Q24H [facility] Last Admin: 09/29/20 09:19 Dose: Not Given Documented by: Hydromorphone HCl (Hydromorphone 0.5 Mg/0.5 Ml Syringe) 0.5 mg IVPUSH Q3H PRN PRN Reason: Pain Last Admin: 09/28/20 01:56 Dose: 0.5 mg Documented by: Ceftriaxone Sodium 2 gm/ (Sodium Chloride) 100 mls @ 200 mls/hr IV Q24H [facility] Last Admin: 09/28/20 22:15 Dose: Not Given Documented by: Melatonin (Melatonin 3 Mg Tab) 3 mg PO BEDTIME [facility] Last Admin: 09/28/20 21:41 Dose: 3 mg Documented by: Meloxicam (Meloxicam 7.5 Mg Tab) 15 mg PO DAILY [facility] Last Admin: 09/29/20 09:14 Dose: 15 mg Documented by: Ondansetron HCl (Ondansetron 4 Mg/2 Ml Sdv) 4 mg IVPUSH Q6H PRN PRN Reason: Nausea Last Admin: 09/28/20 18:59 Dose: 4 mg Documented by: Oxycodone HCl (Oxycodone 5 Mg Tab) 5 mg PO Q8H PRN PRN Reason: Pain (moderate 4-6) Last Admin: 09/28/20 18:59 Dose: 2.5 mg Documented by: Pantoprazole Sodium (Pantoprazole 40 Mg Tab.Cr) 40 mg PO DAILY [facility] Last Admin: 09/29/20 09:14 Dose: 40 mg Documented by: Pregabalin (Pregabalin 25 Mg Cap) 100 mg PO BEDTIME [facility] Last Admin: 09/28/20 21:41 Dose: 100 mg Documented by: Sodium Chloride (Sodium Chloride 0.9% 10 Ml Syringe) 10 ml FLUSH ASDIRECTED PRN PRN Reason: Keep Vein Open Last Admin: 09/27/20 22:17 Dose: 10 ml Documented by: Tramadol HCl (Tramadol 50 Mg Tab) 50 mg PO BEDTIME [facility] Last Admin: 09/28/20 21:42 Dose: 50 mg Documented by: Discontinued Medications Acetaminophen (Acetaminophen 325 Mg Tab) 650 mg PO Q6H PRN PRN Reason: Pain Last Admin: 09/28/20 05:07 Dose: 650 mg Documented by: Hydromorphone HCl (Hydromorphone 0.5 Mg/0.5 Ml Syringe) 0.5 mg IVPUSH ONETIME ONE Stop: 09/27/20 22:07 Last Admin: 09/27/20 22:16 Dose: 0.5 mg Documented by: Sodium Chloride (Normal Saline) 1,000 mls @ 999 mls/hr IV BOLUS ONE; Protocol Stop: 09/27/20 22:57 Last Admin: 09/27/20 22:13 Dose: 999 mls/hr Documented by: Ceftriaxone Sodium 2 gm/ (Sodium Chloride) 100 mls @ 200 mls/hr IV ONETIME ONE Stop: 09/27/20 23:39 Last Admin: 09/27/20 23:25 Dose: 200 mls/hr Documented by: Sodium Chloride (Normal Saline) 1,000 mls @ 150 mls/hr IV ASDIRECTED [facility] Last Admin: 09/27/20 23:25 Dose: 150 mls/hr Documented by: Sodium Chloride (Normal Saline) 1,000 mls @ 150 mls/hr IV ASDIRECTED [facility] Last Admin: 09/29/20 02:52 Dose: 150 mls/hr Documented by: Ceftriaxone Sodium 2 gm/ (Sodium Chloride) 100 mls @ 200 mls/hr IV Q24H [facility] Last Admin: 09/28/20 21:37 Dose: 200 mls/hr Documented by: Ondansetron HCl (Ondansetron 4 Mg/2 Ml Sdv) 4 mg IVPUSH ONETIME ONE Stop: 09/27/20 22:07 Last Admin: 09/27/20 22:16 Dose: 4 mg Documented by: Pregabalin (Pregabalin 25 Mg Cap) 100 mg PO DAILY [facility] Last Admin: 09/28/20 09:30 Dose: Not Given Documented by: - Exam Quality Assessment: Denies: Supplemental Oxygen, DVT Prophylaxis General: Reports: Alert, Oriented, Cooperative, No Acute Distress HEENT: Reports: Pupils Equal, Pupils Reactive, EOMI, Mucous Membr. Moist/[place] Neck: Reports: Supple, Trachea Midline Lungs: Reports: Clear to Auscultation, Normal Respiratory Effort Cardiovascular: Reports: Regular Rate, Regular Rhythm GI/Abdominal Exam: Normal Bowel Sounds, Soft, Non-Tender, No Distention, Other (Suprapubic tenderness has resolved.) (Female) Exam: Deferred Rectal (Female) Exam: Deferred Back Exam: Reports: Normal Inspection, Full Range of Motion Extremities: Normal Inspection, Normal Range of Motion, No Pedal Edema Skin: Reports: Warm, Dry, Intact Neurological: Reports: No New Focal Deficit, Normal Gait, Normal Speech Psy/Mental Status: Reports: Alert, Normal Affect
== END 2020-09-29 13:00 | disposition home or self-care (01) | DRG 690 ==
LOC: JD.ED 21:20 → JD.MS 23:56
PROVIDERS: ADMIT Internal Medicine; ATTEND Internal Medicine
DX: N39.0 Urinary tract infection, site not specified (principal); E86.0 Dehydration; H54.7 Unspecified visual loss; K21.9 Gastro-esophageal reflux disease without esophagitis; G89.29 Other chronic pain; M54.9 Dorsalgia, unspecified; M54.2 Cervicalgia; M19.90 Unspecified osteoarthritis, unspecified site; G43.909 Migraine, unspecified, not intractable, without status migrainosus; Z96.659 Presence of unspecified artificial knee joint; Z20.822 Contact with and (suspected) exposure to COVID-19; Z79.899 Other long term (current) drug therapy; Z87.440 Personal history of urinary (tract) infections; Z90.89 Acquired absence of other organs; Z90.710 Acquired absence of both cervix and uterus; Z98.1 Arthrodesis status; Z98.890 Other specified postprocedural states; Z87.891 Personal history of nicotine dependence
CPT/HCPCS: 36415; 76770; 76770-26; 80053; 83605; 83735; 85007; 85025; 85027; 85610; 86140; 87040; 96374; 96375; 99221; 99239; 99284; 99285-25; A9270-GY; J0696; J1170; J1650; J2405; J7030; U0002